=== PATIENT | male | born 1960 | race Caucasian/White ===

== ENCOUNTER → 2016-11-15 | Outpatient (CLI) | payer OTHER ==
--- NOTE | 2016-11-15 16:55 | REP ---
MAXILLOFACIAL CT WITHOUT CONTRAST: HISTORY: Chronic maxillary sinusitis. The patient is status-post right uncinectomy and partial right ethmoidectomy. Mucosal thickening is present in the left maxillary sinus. There is complete opacification of the left maxillary sinus. Minimal mucosal thickening is present in the left ethmoid front and right maxillary sinuses. The remaining sinuses are clear. Mucosal thickening involves the left osteomeatal unit. The middle and inferior nasal turbinates are partially paradoxical. There is mild deviation of the nasal septum to the right. A spur is present arising from the right side of the nasal septum. The nasal septum abuts the right middle nasal turbinate. The cribriform plate, medial lawson of the orbits and optic canals are intact. There is a aeration of the anterior clinoid processes. The carotid canals form a segment of the posterior lateral lawson of the sphenoid sinus. IMPRESSION: 1. Postoperative change as described above. 2. Sinus mucosal thickening as described above. Signed by Brent Garcia MD 11/15/2016 05:19 P
== END ==
LOC: M RAD 16:05
PROVIDERS: ATTEND Otolaryngology
DX: J32.0 Chronic maxillary sinusitis (principal)

== ENCOUNTER → 2016-12-29 | Outpatient (REF) | payer OTHER | LOC: M LAB REF 21:25 | PROVIDERS: ATTEND Physician Assistant | DX: R19.7 Diarrhea, unspecified (principal) ==

== ENCOUNTER → 2017-01-03 | Outpatient (REF) | payer OTHER ==
[2017-01-06 00:06] LABS: Lyme Disease IgG/IgM Antibodie <0.91 ISR (0.00-0.90); Lyme Disease IgM Ab Quantitati <0.80 index (0.00-0.79)
== END ==
LOC: M LAB REF 16:36
PROVIDERS: ATTEND Nurse Practitioner Family
DX: M79.1 Myalgia (principal)

== ENCOUNTER → 2017-01-23 | Outpatient (REF) | payer OTHER ==
[~2017-01-23] MED LIST: ALBU17IN; CLON1TAB; DYMI137S; NAPR500T2 PO; OMEP40CA2; SIMV40TA2; VITA50003
[2017-01-23 17:40] LABS: BASO % 0.2 % (0.0-1.0); EOS # 0.1 K/mm3 (0.0-0.50); EOS % 2.8 % (0.0-3.0); MEAN CORPUSCULAR HEMOGLOBIN 33.7 pg (27.0-33.0); MEAN CORPUSCULAR HGB CONC 34.7 g/dl (32.0-36.5); MEAN CORPUSCULAR VOLUME 97.2 fl (80.0-96.0); MONO # 0.3 K/mm3 (0.0-0.8); MONO % 7.8 % (0.0-5.0); NEUTROPHILS # 2.9 K/mm3 (1.8-7.7); NEUTROPHILS % 66.9 % (36.0-66.0); RED CELL DISTRIBUTION WIDTH 12.7 % (11.5-14.5); WHITE BLOOD COUNT 4.4 K/mm3 (4.0-10.0)
[2017-01-23 17:53] LABS: IMMUNOGLOBULIN E 59.3 IU/ML (<100); IMMUNOGLOBULIN G 845 MG/DL (681-1648); IMMUNOGLOBULIN M 53.1 MG/DL (40-230)
[2017-01-30 14:12] LABS: ANTI TETANUS ANTIBODY 1.65 IU/mL (<0.10); IMMUNOGLOBULIN D 1.16 mg/dL (<14.11); STREP PNEUMO TYPE 12F <0.3 ug/mL (>1.3); STREP PNEUMO TYPE 19A 0.7 ug/mL (>1.3); STREP PNEUMO TYPE 19F 1.6 ug/mL (>1.3); STREP PNEUMO TYPE 23F <0.3 ug/mL (>1.3); STREP PNEUMO TYPE 6B 7.6 ug/mL (>1.3); STREP PNEUMO TYPE 7F 2.4 ug/mL (>1.3); STREP PNEUMO TYPE 9N <0.3 ug/mL (>1.3); STREP PNEUMO TYPE 9V 0.6 ug/mL (>1.3)
== END ==
LOC: M LABDRAW1 16:30
PROVIDERS: ATTEND Allergy & Immunology Allergy
DX: D84.9 Immunodeficiency, unspecified (principal)

== ENCOUNTER → 2017-02-07 | Day surgery (SDC) | payer OTHER ==
[~2017-02-07] VITALS: Ht 182.9 cm; Wt 97.1 kg
[~2017-02-07] MED LIST changes: +EPINEPHrine 1MG/ML INJ 30ML MD-VIAL As Ordered ONE; +GLYCOPYRROLATE INJ 0.2 MG/ML 2 ML VIAL As Ordered ONE; +HYDROmorphone HCL 1 MG/ML SYRINGE (J1170) IV PRN; +HYDROmorphone HCL 2 MG/ML 1ML VIAL (J1170) As Ordered ONE; +LIDOCAINE 2% INJ 100 MG/5 ML SDV (FOR ANES.) As Ordered ONE; +LIDOCAINE W/EPINEPHRINE 1% 20ML VIAL As Ordered ONE; +LR 1,000 ML IV ONE; +LR 1,000 ML IV SCH; +METHYLENE BLUE 0.5% (5MG/ML) 10 ML AMP (PROVAYBLUE)(Q9968 PER 1MG) As Ordered ONE; +MIDAZOLAM INJ 2 MG/2 ML VIAL (J2250) As Ordered ONE; -NAPR500T2 PO; +NAPR500T3 PO; +NEOSTIGMINE 1MG/ML 5 ML SYRINGE (J2710) As Ordered ONE; +ONDANSETRON 4MG/2ML VIAL (J2405) IV PRN; +PERCOCET 5MG/325MG TAB PO PRN; +PROPOFOL 200 MG/20 ML VIAL As Ordered ONE; +ROCURONIUM BROMIDE 50 MG/5 ML VIAL/SYRINGE As Ordered ONE; +SODIUM CHLORIDE 0.9% NASAL GEL 15MG (AYR) As Ordered ONE; +VITA1CAP40; -VITA50003; +dexameTHASONE 4 MG/ML 1ML VIAL (J1100) As Ordered ONE; +dexameTHASONE 4 MG/ML 1ML VIAL (J1100) IV ONE; +fentaNYL 100 MCG/2 ML INJECTION (J3010) IV PRN; +fentaNYL 250 MCG/5 ML INJECTION (J3010) As Ordered ONE
[2017-02-07 16:50] VITALS: BP 155/87
--- NOTE | 2017-02-09 00:50 | ECGEPIP ---
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
--- NOTE | 2017-03-02 10:37 | RO ---
DATE OF PROCEDURE: 02/07/2017 PREPROCEDURE DIAGNOSES: 1. Left chronic maxillary sinusitis. 2. Left chronic ethmoid sinusitis. POSTPROCEDURE DIAGNOSES: 1. Left chronic maxillary sinusitis. 2. Left chronic ethmoid sinusitis. PROCEDURE PERFORMED: 1. Endoscopic left maxillary antrostomy with tissue removal. 2. Endoscopic anterior ethmoidectomy. 3. Stereotactic surgery using the Brainlab. 4. Implantation of the mini Propel stent to the left osteomeatal complex. SURGEON: Dr. Wilfrido Ryan SAP SD ANALYST: ANESTHESIA: General. CLINICAL PREAMBLE: This 56-year-old man presented to the office with history of left facial fullness and headache. CT scan revealed left maxillary sinusitis. Management options, including surgery listed above, have been discussed. The patient understood and consented to the procedure. DESCRIPTION OF PROCEDURE: Operating room (OR) narration: The patient was identified in preoperative holding and had the left side of the cheek marked. He was brought to the operating room in stable condition. In supine position on the operating table, the patient received general anesthesia, followed by orotracheal intubation, without incident. The patient was prepped and draped in the usual fashion for the procedure. The nasal cavity were packed using pledgets soaked in 1:100,000 epinephrine. The headband was applied to the forehead. Good signal registration was obtained between the Brainlab system and the anatomic landmarks on the forehead. The pledgets were removed from the nasal cavity. A 0-degree nasoendoscope was used to examine both sides of the nasal cavity. The left uncinate process and the anterior surface of the left middle nasal turbinate were infiltrated with 1% lidocaine with 1:100,000 epinephrine. The uncinectomy was performed. The left maxillary antrum was identified using the ball tip probe, and left maxillary antrostomy was performed using backbiting forceps. The left ethmoidalis bulla was identified and taken down. The diseased anterior ethmoid air cells were resected, as well. The polypoid tissue around the left maxillary antrum was identified and resected, as well. At this time, the hemostasis was achieved using cottonoid pledgets soaked in 1:100,000 epinephrine. The mini Propel stent was then successfully implanted into the left osteomeatal complex. At the end of the procedure, sponge and instrument counts are correct. Estimated blood loss was approximately 50 mL. No complication was encountered. General anesthesia was reversed, and the patient was extubated and brought to the recovery room in stable condition. MILLER
== END | disposition home or self-care (01) ==
LOC: M SDC 11:45
PROVIDERS: ATTEND Otolaryngology
DX: J32.0 Chronic maxillary sinusitis (principal); J32.2 Chronic ethmoidal sinusitis; J31.0 Chronic rhinitis; R43.8 Other disturbances of smell and taste; J45.909 Unspecified asthma, uncomplicated; G47.33 Obstructive sleep apnea (adult) (pediatric); E78.00 Pure hypercholesterolemia, unspecified; K21.9 Gastro-esophageal reflux disease without esophagitis; R51 Headache; R06.83 Snoring; Z88.1 Allergy status to other antibiotic agents; Z79.899 Other long term (current) drug therapy
CPT/HCPCS: 31254; 31256; 88305; 93005; C2625; J1100; J1170; J2250; J2710; J3010; Q9968

== ENCOUNTER → 2017-02-22 | Outpatient (CLI) | payer OTHER ==
[~2017-02-22] VITALS: Ht 182.9 cm; Wt 96.6 kg
[~2017-02-22] MED LIST changes: -EPINEPHrine 1MG/ML INJ 30ML MD-VIAL As Ordered ONE; -GLYCOPYRROLATE INJ 0.2 MG/ML 2 ML VIAL As Ordered ONE; -HYDROmorphone HCL 1 MG/ML SYRINGE (J1170) IV PRN; -HYDROmorphone HCL 2 MG/ML 1ML VIAL (J1170) As Ordered ONE; -LIDOCAINE W/EPINEPHRINE 1% 20ML VIAL As Ordered ONE; -LR 1,000 ML IV ONE; -LR 1,000 ML IV SCH; -METHYLENE BLUE 0.5% (5MG/ML) 10 ML AMP (PROVAYBLUE)(Q9968 PER 1MG) As Ordered ONE; -MIDAZOLAM INJ 2 MG/2 ML VIAL (J2250) As Ordered ONE; -NEOSTIGMINE 1MG/ML 5 ML SYRINGE (J2710) As Ordered ONE; +NS 1,000 ML IV ONE; -ONDANSETRON 4MG/2ML VIAL (J2405) IV PRN; -PERCOCET 5MG/325MG TAB PO PRN; -ROCURONIUM BROMIDE 50 MG/5 ML VIAL/SYRINGE As Ordered ONE; -SODIUM CHLORIDE 0.9% NASAL GEL 15MG (AYR) As Ordered ONE; -dexameTHASONE 4 MG/ML 1ML VIAL (J1100) As Ordered ONE; -dexameTHASONE 4 MG/ML 1ML VIAL (J1100) IV ONE; -fentaNYL 100 MCG/2 ML INJECTION (J3010) IV PRN; -fentaNYL 250 MCG/5 ML INJECTION (J3010) As Ordered ONE
--- NOTE | 2017-02-22 08:37 | ROOR ---
Patient Name: Otis Hernandez Procedure Date: 02/22/2017 8:08 AM Date of : 1960 Age: 56 Room: [facility] Gender: Male Note Status: Finalized Procedure: Total Colonoscopy to Cecum Indications: Last colonoscopy: 2011, Change in bowel habits Providers: Jacky Casey MD Referring MD: Kulwant Baez MD Requesting Provider: Medicines: Monitored Anesthesia Care Complications: No immediate complications. Procedure: Pre-Anesthesia Assessment: - The heart rate, respiratory rate, oxygen saturations, blood pressure, adequacy of pulmonary ventilation, and response to care were monitored throughout the procedure. The Colonoscope was introduced through the anus and advanced to the cecum, identified by appendiceal orifice and ileocecal valve. The colonoscopy was performed without difficulty. The patient tolerated the procedure well. The quality of the bowel preparation was good. Findings: The perianal and digital rectal examinations were normal. Non-bleeding internal hemorrhoids were found during retroflexion. The hemorrhoids were small and Grade I (internal hemorrhoids that do not prolapse). Scattered small-mouthed diverticula were found in the recto-sigmoid colon, sigmoid colon and descending colon. The exam was otherwise without abnormality on direct and retroflexion views. Impression: - Non-bleeding internal hemorrhoids. - Diverticulosis in the recto-sigmoid colon, in the sigmoid colon and in the descending colon. - The examination was otherwise normal on direct and retroflexion views. - No specimens collected. - The exam was otherwise normal to the cecum. Recommendation: - Patient has a contact number available for emergencies. The signs and symptoms of potential delayed complications were discussed with the patient. Return to normal activities tomorrow. Written discharge instructions were provided to the patient. - High fiber diet. - Discharge patient to home. - Continue present medications. - Repeat colonoscopy in 5 years for screening purposes. - Return to referring physician. - The findings and recommendations were discussed with the patient's family. Jacky Casey MD Jacky Casey MD 02/22/2017 8:36:54 AM This report has been signed electronically. Number of Addenda: 0 Note Initiated On: 02/22/2017 8:08 AM Estimated Blood Loss: Estimated blood loss: none.
[2017-02-22 08:56] VITALS: BP 132/77
== END | disposition home or self-care (01) ==
LOC: M OPP 07:02
PROVIDERS: ATTEND Internal Medicine Gastroenterology
DX: R19.4 Change in bowel habit (principal); K64.0 First degree hemorrhoids; K57.30 Diverticulosis of large intestine without perforation or abscess without bleeding; E78.5 Hyperlipidemia, unspecified; K21.9 Gastro-esophageal reflux disease without esophagitis; R12 Heartburn; R51 Headache; J45.909 Unspecified asthma, uncomplicated; G47.30 Sleep apnea, unspecified; R06.83 Snoring; J32.9 Chronic sinusitis, unspecified; Z88.0 Allergy status to penicillin; Z79.899 Other long term (current) drug therapy; Z83.71 Family history of colonic polyps; Z87.891 Personal history of nicotine dependence

== ENCOUNTER → 2017-03-18 | Outpatient (REF) | payer OTHER ==
[~2017-03-18] MED LIST changes: -LIDOCAINE 2% INJ 100 MG/5 ML SDV (FOR ANES.) As Ordered ONE; -NS 1,000 ML IV ONE; -PROPOFOL 200 MG/20 ML VIAL As Ordered ONE
== END ==
LOC: M LAB REF 15:29
PROVIDERS: ATTEND Family Medicine
DX: R19.7 Diarrhea, unspecified (principal)

== ENCOUNTER → 2017-04-14 | Outpatient (REF) | payer OTHER ==
[2017-04-20 14:15] LABS: STREP PNEUMO TYPE 12F 0.9 ug/mL (>1.3); STREP PNEUMO TYPE 18C >22.4 ug/mL (>1.3); STREP PNEUMO TYPE 19A 6.2 ug/mL (>1.3); STREP PNEUMO TYPE 19F 8.8 ug/mL (>1.3); STREP PNEUMO TYPE 23F 18.4 ug/mL (>1.3); STREP PNEUMO TYPE 6B 17.7 ug/mL (>1.3); STREP PNEUMO TYPE 7F >26.2 ug/mL (>1.3); STREP PNEUMO TYPE 9N 6.2 ug/mL (>1.3); STREP PNEUMO TYPE 9V 10.3 ug/mL (>1.3)
== END ==
LOC: M LABDRAW1 09:55
PROVIDERS: ATTEND Nurse Practitioner Family
DX: J32.9 Chronic sinusitis, unspecified (principal)

== ENCOUNTER → 2019-05-24 | Outpatient (REF) | payer OTHER ==
[~2019-05-24] MED LIST changes: -CLON1TAB; +CLON1TAB8; +NAPR-885 PO; -NAPR500T3 PO; -VITA1CAP40; +VITA50005
== END ==
LOC: M LAB REF 15:50
PROVIDERS: ATTEND Physician Assistant
DX: M79.10 Myalgia, unspecified site (principal)

== ENCOUNTER → 2019-05-30 | Outpatient (REF) | payer OTHER | LOC: M LAB REF 12:30 | PROVIDERS: ATTEND Family Medicine | DX: R26.89 Other abnormalities of gait and mobility (principal) ==

== ENCOUNTER → 2019-06-07 | Outpatient (REF) | payer OTHER ==
[~2019-06-07] MED LIST changes: -OMEP40CA2; +OMEP40CA97
[2019-06-07 19:09] LABS: GAMMA GLUTAMYLTRANSPEPTIDASE 82 U/L (15-85)
[2019-06-10 10:53] LABS: HEPATITIS B SURFACE ANTIGEN NEGATIVE (NEGATIVE)
[2019-06-10 11:20] LABS: HEPATITIS C VIRUS ABY INDEX 0.1 INDEX (<0.8)
[2019-06-10 11:21] LABS: HEPATITIS B CORE ANTIBODY IGM NEGATIVE (NEGATIVE)
[2019-06-10 11:23] LABS: HEPATITIS A ANTIBODY IGM NEGATIVE (NEGATIVE)
== END ==
LOC: M LAB REF 16:15
PROVIDERS: ATTEND Family Medicine
DX: R74.8 Abnormal levels of other serum enzymes (principal)

== ENCOUNTER → 2019-08-30 | Outpatient (REF) | payer OTHER ==
[~2019-08-30] MED LIST changes: -SIMV40TA2; +SIMV40TA20
[2019-08-30 13:51] LABS: APPEARANCE, URINE CLEAR (CLEAR); BACTERIA, URINE AUTO NEGATIVE (NEGATIVE); BILIRUBIN, URINE AUTO NEGATIVE (NEGATIVE); BLOOD, URINE BLOOD NEGATIVE (NEGATIVE); COLOR, URINE YELLOW (YELLOW); GLUCOSE, URINE (UA) AUTO NEGATIVE (NEGATIVE); KETONE, URINE AUTO NEGATIVE (NEGATIVE); LEUKOCYTE ESTERASE, URINE AUTO NEGATIVE (NEGATIVE); NITRITE, URINE AUTO NEGATIVE (NEGATIVE); PROTEIN, URINE AUTO NEGATIVE (NEGATIVE); RBC, URINE AUTO 0 /HPF (0-3); SPECIFIC GRAVITY URINE AUTO 1.008 (1.002-1.035); SQUAMOUS EPITHELIAL CELL UR AU 0 /HPF (0-6); UROBILINOGEN, URINE AUTO 0.2 mg/dL (0.0-2.0); WBC, URINE AUTO 1 /HPF (0-3)
== END ==
LOC: M LAB REF 12:06
PROVIDERS: ATTEND Family Medicine
DX: Z01.818 Encounter for other preprocedural examination (principal)

== ENCOUNTER 2019-09-16 18:56 | Emergency (ER) | payer OTHER ==
[~2019-09-16] VITALS: Ht 182.9 cm; Wt 88.6 kg
[2019-09-16] MEDS ORDERED: LIDOCAINE 2% 5ML JELLY UROJET As Ordered ONE (19:30)
[2019-09-16] MEDS ORDERED: LIDOCAINE 2% 5ML JELLY UROJET TOP ONE (19:30)
[2019-09-16] MEDS ORDERED: CIPROFLOXACIN 500 MG TAB PO ONE (20:30)
[2019-09-16 20:55] VITALS: BP 127/73
== END 2019-09-16 21:23 | disposition home or self-care (01) ==
LOC: M ED 18:56
DX: R33.9 Retention of urine, unspecified (principal); N40.1 Benign prostatic hyperplasia with lower urinary tract symptoms; K21.9 Gastro-esophageal reflux disease without esophagitis; J45.909 Unspecified asthma, uncomplicated; E78.5 Hyperlipidemia, unspecified; Z79.899 Other long term (current) drug therapy; Z88.0 Allergy status to penicillin

== ENCOUNTER → 2020-11-17 | Outpatient (CLI) | payer OTHER ==
[2020-11-17 14:14] LABS: FOLATE 8.2 NG/ML
== END ==
LOC: M LAB 12:13
PROVIDERS: ATTEND Internal Medicine Pulmonary Disease
DX: D75.89 Other specified diseases of blood and blood-forming organs (principal)

== ENCOUNTER → 2021-04-23 | Outpatient (REF) | payer OTHER ==
[~2021-04-23] MED LIST changes: +OMEP40CA4; -OMEP40CA97
[2021-04-23 17:15] LABS: FOLATE 5.8 NG/ML
== END ==
LOC: M LAB REF 16:10
PROVIDERS: ATTEND Family Medicine
DX: R71.8 Other abnormality of red blood cells (principal)

== ENCOUNTER → 2021-05-12 | Outpatient (CLI) | payer OTHER ==
[~2021-05-12] MED LIST changes: +PROHANCE 279.3MG/ML 15ML VIAL ONE; +PROHANCE 279.3MG/ML 5ML VIAL ONE
--- NOTE | 2021-05-13 11:42 | REP ---
INDICATION: LIVER LESION F/U. COMPARISON: MRI 10/19/2020. TECHNIQUE: Multiple sequences obtained in the axial coronal planes prior to and following the intravenous administration of 16 cc ProHance. FINDINGS: Once again, in the right lobe of the liver, there is a subcapsular signal abnormality which is hyperintense on T2. There is immediate, focal ill-defined subcapsular enhancement which persists on delayed images. This is unchanged in size and appearance, measuring 8 x 12 x 8 mm. No other liver lesion is seen. A subcentimeter hemangioma is again seen in the anterior spleen. The adrenal glands are normal. No pancreatic mass or pancreatic duct dilatation is seen. Prominent right renal pelvis is unchanged. Gallbladder is grossly unremarkable. There is no biliary dilatation. There is no adenopathy or free fluid. 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 Stable splenic hemangioma, subcentimeter in size. Prominent right renal pelvis unchanged. <Electronically signed by Anurag Garcia > 05/13/21 [id number]
== END ==
LOC: M PLAIMG 13:52
PROVIDERS: ATTEND Family Medicine
DX: D37.6 Neoplasm of uncertain behavior of liver, gallbladder and bile ducts (principal); D18.03 Hemangioma of intra-abdominal structures
CPT/HCPCS: 74183; A9576

== ENCOUNTER → 2021-08-16 | Outpatient (REF) ==
[~2021-08-16] MED LIST changes: -PROHANCE 279.3MG/ML 15ML VIAL ONE; -PROHANCE 279.3MG/ML 5ML VIAL ONE
== END ==
LOC: M LABSMTC 09:31
PROVIDERS: ATTEND Pediatrics
DX: Z20.822 Contact with and (suspected) exposure to COVID-19 (principal)

== ENCOUNTER → 2022-01-14 | Outpatient (REF) | payer OTHER | LOC: M LAB REF 12:24 | PROVIDERS: ATTEND Family Medicine | DX: R71.8 Other abnormality of red blood cells (principal) ==

== ENCOUNTER → 2022-05-04 | Outpatient (REF) | payer OTHER ==
[2022-05-04 18:42] LABS: APPEARANCE, URINE MANUAL CLEAR (CLEAR); COLOR, URINE MANUAL YELLOW (YELLOW)
[2022-05-04 18:43] LABS: BILIRUBIN, URINE MANUAL NEGATIVE (NEGATIVE); BLOOD URINE MANUAL NEGATIVE (NEGATIVE); GLUCOSE, URINE (UA) MANUAL NEGATIVE (NEGATIVE); KETONE, URINE MANUAL NEGATIVE (NEGATIVE); LEUKOCYTE ESTERASE, URINE MAN NEGATIVE (NEGATIVE); NITRITE, URINE MANUAL NEGATIVE (NEGATIVE); PROTEIN, URINE MANUAL NEGATIVE (NEGATIVE); SPECIFIC GRAVITY,URINE MANUAL 1.005 (1.002-1.035); UROBILINOGEN, URINE MANUAL NORMAL (NORMAL)
== END ==
LOC: M LAB REF 16:24
PROVIDERS: ATTEND Family Medicine
DX: Z01.818 Encounter for other preprocedural examination (principal)

== ENCOUNTER → 2022-05-10 | Outpatient (REF) | payer OTHER | LOC: M SFHCDERM 14:13 | PROVIDERS: ATTEND Nurse Practitioner Family | DX: D22.5 Melanocytic nevi of trunk (principal) ==

== ENCOUNTER → 2022-07-12 | Outpatient (REF) | payer OTHER | LOC: M SFHCDERM 14:07 | PROVIDERS: ATTEND Nurse Practitioner Family | DX: L90.5 Scar conditions and fibrosis of skin (principal); Z98.890 Other specified postprocedural states ==

== ENCOUNTER → 2022-08-01 | Outpatient (CLI) | payer OTHER | LOC: M PLAIMG 10:51 | PROVIDERS: ATTEND Family Medicine | DX: R42 Dizziness and giddiness (principal) ==

== ENCOUNTER 2023-05-01 08:41 | Day surgery (SDC) | payer OTHER ==
[~2023-05-01] VITALS: Ht 182.9 cm; Wt 87.5 kg
[~2023-05-01 08:41] MED LIST changes: +ATOR1TAB19 PO; +ERGO500029 PO; +ESOM40CA35 PO; +MONT10TA97 PO; +NS 1,000 ML IV ONE; +SYMB80INH; +TADA5TAB PO
[2023-05-01] MEDS ORDERED: LIDOCAINE 2% 100MG/5ML SDV (FOR ANES.) As Ordered ONE (10:43)
[2023-05-01] MEDS ORDERED: propofoL 200 MG/20 ML VIAL As Ordered ONE ×2 (10:44→10:47)
[2023-05-01 11:11] VITALS: TEMP 96
[2023-05-01 11:33] VITALS: BP 132/68; O2SAT 97
== END 2023-05-01 11:45 | disposition home or self-care (01) ==
LOC: M OPP 08:41
PROVIDERS: ATTEND Internal Medicine Gastroenterology
DX: Z12.11 Encounter for screening for malignant neoplasm of colon (principal); K64.0 First degree hemorrhoids; K44.9 Diaphragmatic hernia without obstruction or gangrene; R12 Heartburn; Z83.71 Family history of colonic polyps

== ENCOUNTER → 2024-03-18 | Outpatient (CLI) | payer OTHER ==
[~2024-03-18] MED LIST changes: -NS 1,000 ML IV ONE
== END ==
LOC: M CARPUL 14:51
PROVIDERS: ATTEND Internal Medicine Pulmonary Disease
DX: J45.40 Moderate persistent asthma, uncomplicated (principal)

== ENCOUNTER → 2024-04-09 | Outpatient (CLI) | payer OTHER ==
[~2024-04-09] MED LIST changes: +ISOVUE-300 61% 100ML VIAL As Ordered ONE; +LIDOCAINE 1% MDV 20ML VIAL As Ordered ONE; +methylPREDNISolone 80MG/ML SUSP 1ML VIAL As Ordered ONE
== END ==
LOC: M RAD 14:13
PROVIDERS: ATTEND Orthopaedic Surgery
DX: M25.551 Pain in right hip (principal)
CPT/HCPCS: 20610; 77002; J0665; J1010; Q9967

== ENCOUNTER 2024-06-13 08:28 | Outpatient (RCR) | payer OTHER ==
[~2024-06-13 08:28] MED LIST changes: -ISOVUE-300 61% 100ML VIAL As Ordered ONE; -LIDOCAINE 1% MDV 20ML VIAL As Ordered ONE; -methylPREDNISolone 80MG/ML SUSP 1ML VIAL As Ordered ONE
== END 2024-06-20 ==
LOC: M PT 08:28
PROVIDERS: ATTEND Orthopaedic Surgery
DX: M77.51 Other enthesopathy of right foot and ankle (principal)

== ENCOUNTER 2024-06-19 09:54 | Outpatient (RCR) | payer OTHER | END 2024-06-20 | LOC: M PT 09:54 | PROVIDERS: ATTEND Orthopaedic Surgery | DX: M54.2 Cervicalgia (principal) ==

== ENCOUNTER → 2024-06-24 | Outpatient (REF) | payer OTHER | LOC: M LAB REF 16:40 | PROVIDERS: ATTEND Family Medicine | DX: Z13.21 Encounter for screening for nutritional disorder (principal) ==

== ENCOUNTER 2024-07-15 10:34 | Outpatient (RCR) | payer OTHER | END 2024-07-20 | LOC: M PT 10:34 | PROVIDERS: ATTEND Orthopaedic Surgery | DX: M54.2 Cervicalgia (principal); M54.50 Low back pain, unspecified ==

== ENCOUNTER 2024-08-19 12:41 | Outpatient (RCR) | payer OTHER ==
[~2024-08-19 12:41] MED LIST changes: -TADA5TAB PO; +TADA5TAB94 PO
== END 2024-08-20 ==
LOC: M PT 12:41
PROVIDERS: ATTEND Orthopaedic Surgery
DX: M54.50 Low back pain, unspecified (principal)

== ENCOUNTER → 2025-02-19 | Outpatient (REF) | payer OTHER ==
[~2025-02-19] MED LIST changes: +LEVO1TAB40 PO; +TADA5TAB2 PO; -TADA5TAB94 PO
== END ==
LOC: M LAB REF 14:11
PROVIDERS: ATTEND Family Medicine
DX: R97.20 Elevated prostate specific antigen [PSA] (principal)

== ENCOUNTER → 2025-04-23 | Outpatient (CLI) | payer OTHER | LOC: M CARPUL 08:17 | PROVIDERS: ATTEND Internal Medicine Pulmonary Disease | DX: J45.40 Moderate persistent asthma, uncomplicated (principal) ==